=== PATIENT | female | born 1975 | race Caucasian/White ===

== ENCOUNTER 2023-11-01 16:57 | Emergency (ER) | payer OTHER, SELFPAY ==
[2023-11-01] VITALS (14 sets, daily range): BP systolic 124–205; BP diastolic 79–118; PULSE 100–127; TEMP 37.1; O2SAT 95–98; BMI 36.6
--- NOTE | 2023-11-01 17:10 | ECG_ITS ---
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
[2023-11-01] MEDS: 0.9 % SODIUM CHLORIDE 1,000 ML 1000 ML IV (17:32)
--- NOTE | 2023-11-01 17:35 | ED.SOB1 ---
HPI - SOB/Dyspnea General Chief Complaint: Shortness of Breath/Dyspnea Stated Complaint: CHEST PRESSURE Time Seen by Provider: 11/01/23 17:10 Source: patient Mode of arrival: walk-in Limitations: no limitations History of Present Illness HPI Narrative: Patient is a 48-year-old female who presents to the emergency department for shortness of breath and generalized weakness. Patient states she was outside in the heat painting cabinets earlier today when she felt winded and fatigued. She states several days ago she felt fatigued and nauseous. She has a history of asthma, she used her inhaler on feeling winded this afternoon with improvement. She has had no fevers, chest pain, vomiting. No other upper respiratory symptoms. She denies any peripheral edema. No history of tobacco abuse. 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 She admits to not drinking fluids well today. Related Data Home Medications ?Medication ?Instructions ?Recorded ?Confirmed budesonide 180 mcg/actuation 2 inh inhalation BEDTIME 11/01/23 11/01/23 breath activated powder inhaler (Pulmicort Flexhaler) fluconazole 50 mg tablet 50 mg PO DAILY 11/01/23 11/01/23 metformin 1,000 mg tablet 1,000 mg PO BID 11/01/23 11/01/23 montelukast 10 mg tablet 10 mg PO DAILY 11/01/23 11/01/23 Allergies Allergy/AdvReac Type Severity Reaction Status Date / Time No Known Drug Allergies Allergy Verified 11/01/23 17:04 Review of Systems ROS Constitutional Denies: fever or chills Ears, nose, mouth, and throat Denies: throat pain or nasal congestion Cardiovascular Denies: chest pain Respiratory Reports: shortness of breath; Denies: cough Gastrointestinal Denies: nausea or vomiting Integumentary/Breast Denies: rash Neurological Denies: headache, numbness in extremities, weakness in extremities or dizziness Hematologic/Lymphatic Denies: easy bruising or easy bleeding Exam Narrative Exam Narrative: Gen.: Awake, alert, in no distress Head: Normocephalic, atraumatic ENT: Moist mucous membranes Respiratory: No respiratory distress, lungs clear bilaterally Cardio: Tachycardia Extremities: Moves extremities equally, no pedal edema Psych: Normal mood and affect Neuro: No focal neuro deficit Skin: Warm, dry, intact Constitutional Vital Signs, click to edit/add: Last Vital Signs Temp 98.8 F 11/01/23 17:04 Pulse 100 H 11/01/23 21:04 Resp 20 11/01/23 17:55 BP 134/86 11/01/23 19:40 Pulse Ox 98 11/01/23 21:04 O2 Del Method Room Air 11/01/23 17:55 Course Vital Signs Vital signs: Vital Signs Temperature 98.8 F 11/01/23 17:04 Pulse Rate 117 H 11/01/23 17:04 Respiratory Rate 18 11/01/23 17:04 Blood Pressure 130/88 11/01/23 17:04 Pulse Oximetry 98 11/01/23 17:04 Oxygen Delivery Method Room Air 11/01/23 17:04 Temperature 98.8 F 11/01/23 17:04 Pulse Rate 100 H 11/01/23 21:04 Respiratory Rate 20 11/01/23 17:55 Blood Pressure 134/86 11/01/23 19:40 Pulse Oximetry 98 11/01/23 21:04 Oxygen Delivery Method Room Air 11/01/23 17:55 MDM - SOB/Dyspnea MDM Narrative Medical decision making narrative: Laboratory studies reviewed and noted within normal limits including D-dimer, troponin and BNP. Chest x-ray is unremarkable. Vital signs have improved, tachycardia has improved after IV fluids. Patient given general instructions for dehydration, increase fluids and use albuterol as needed. Patient is diabetic with elevated blood sugar so we will avoid steroids at this time. Follow-up with PCP and pulmonology and return to the ER if symptoms change or worsen SUPERVISED APC VISIT, PHYSICIAN ATTESTATION: Based on the medical record the care appears appropriate. ? Medical Records Attestation: I reviewed the patient's medical records. Lab Data Attestation: I reviewed the patient's lab results. Labs: Lab Results 11/01/23 11/01/23 Range/Units 17:25 17:30 WBC 11.8 H (4.0-11.0) 10^3/uL RBC 5.08 (4.20-5.40) 10^6/uL Hgb 15.3 (12.0-16.0) g/dL Hct 42.7 (36.0-48.0) % MCV 84.1 (81.0-99.0) fL MCH 30.1 (26.7-34.0) pg MCHC 35.8 H (29.9-35.2) g/dL RDW 12.2 (11.0-15.0) % Plt Count 333 (150-450) 10^3/uL MPV 10.3 (9.5-13.5) fL Neut % (Auto) 78.2 H (43.0-75.0) % Lymph % (Auto) 13.9 L (20.5-60.0) % [place] % (Auto) 5.9 (1.7-12.0) % Eos % (Auto) 1.4 (0.9-7.0) % Baso % (Auto) 0.3 (0.2-2.0) % Neut # (Auto) 9.3 H (1.4-6.5) 10^3/uL Lymph # (Auto) 1.6 (1.2-3.8) 10^3/uL [place] # (Auto) 0.7 (0.3-0.8) 10^3/uL Eos # (Auto) 0.2 (0.0-0.7) 10^3/uL Baso # (Auto) 0.0 (0.0-0.1) 10^3/uL Abs Immat Gran (auto) 0.03 (0.00-0.03) 10^3/uL Imm/Tot Granulo (auto) 0.3 (0.0-0.5) % PT 10.2 (9.0-11.6) sec INR 0.96 D-Dimer 0.32 (<=0.59) mg/L FEU Sodium 136 (136-145) mmol/L Potassium 3.9 (3.5-5.1) mmol/L Chloride 99 (98-107) mmol/L Carbon Dioxide 25.7 (21.0-32.0) mmol/L Anion Gap 15.2 BUN 12.0 (7.0-18.0) mg/dL Creatinine 0.66 (0.55-1.02) mg/dL Est GFR ( Amer) >60 (>=60) Est GFR (Non-Af Amer) >60 (>=60) BUN/Creatinine Ratio 18.2 Glucose 225 H (74-106) mg/dL Lactate 2.2 H* (0.4-2.0) mmol/L Calcium 9.0 (8.5-10.1) mg/dL Total Bilirubin 0.3 (0.2-1.0) mg/dL AST 8 L (15-37) U/L ALT 34 (14-59) U/L Alkaline Phosphatase 70 (46-116) U/L Troponin I High Sens 4.6 (4.0-51.3) pg/mL NT-Pro-B Natriuret Pep 10.0 (<=900.0) pg/mL Total Protein 7.2 (6.4-8.2) g/dL Albumin 3.8 (3.4-5.0) g/dL Globulin 3.4 g/dL Albumin/Globulin Ratio 1.1 TSH 0.592 (0.358-3.740) uIU/mL Urine Color Lt. yellow (YELLOW) Urine Clarity Clear (CLEAR) Urine pH 5.5 (5.0-9.0) Ur Specific [place] 1.025 (1.005-1.025) Urine Protein Negative (NEG/TRACE) mg/dL Urine Glucose (UA) >=1000 A (NEGATIVE) mg/dL Urine Ketones Trace A (NEGATIVE) mg/dL Urine Occult Blood Negative (NEGATIVE) Urine Nitrite Negative (NEGATIVE) Urine Bilirubin Negative (NEGATIVE) Urine Urobilinogen 0.2 (0.2-1.0) EU/dL Ur Leukocyte Esterase Negative (NEGATIVE) Acetone, Qual Negative (NEGATIVE) Imaging Data Chest x-ray: Attestation: I have reviewed the pertinent imaging results. Radiologist's impression: ITS Impressions Chest X-Ray 11/01/23 18:59 Impression: No acute cardiopulmonary process. Electronically authenticated by: REBECCA GREEN Date: 11/01/2023 20:49 ECG Data Attestation: I personally reviewed and interpreted this ECG as follows: (Sinus tachycardia at a rate of 119, no acute ST elevation or ectopy. EKG reviewed by attending physician) Discharge Plan Discharge Stand Alone Forms: Portal Instructions Chief Complaint: Shortness of Breath/Dyspnea Clinical Impression: Shortness of breath, Fatigue Patient Disposition: Home, Self-Care Time of Disposition Decision: 20:55 Condition: Good Prescriptions / Home Meds: No Action metformin 1,000 mg tablet 1,000 mg PO BID montelukast 10 mg tablet 10 mg PO DAILY fluconazole 50 mg tablet 50 mg PO DAILY Pulmicort Flexhaler 180 mcg/actuation aerosol powdr breath activated 2 inh INHALATION BEDTIME Print Language: Togolese Instructions: Fatigue (ED), Shortness of Breath (ED) Referrals: EYAD GALARZA [Primary Care Provider] - 1 week Discharge Date/Time: 11/01/23 21:19
[2023-11-01 17:41] LABS: Basophils Percent Auto 0.3 % (0.2-2.0); Eosinophils Absolute Auto 0.2 10^3/uL (0.0-0.7); Eosinophils Percent Auto 1.4 % (0.9-7.0); Hematocrit 42.7 % (36.0-48.0); Hemoglobin 15.3 g/dL (12.0-16.0); Immature Granulocytes Abs Auto 0.03 10^3/uL (0.00-0.03); Immature Granulocytes Pct Auto 0.3 % (0.0-0.5); Lymphocytes Absolute Auto 1.6 10^3/uL (1.2-3.8); Lymphocytes Percent Auto 13.9 % (20.5-60.0); Mean Corpuscular HGB Conc 35.8 g/dL (29.9-35.2); Mean Corpuscular Hemoglobin 30.1 pg (26.7-34.0); Mean Corpuscular Volume 84.1 fL (81.0-99.0); Mean Platelet Volume 10.3 fL (9.5-13.5); Monocytes Absolute Auto 0.7 10^3/uL (0.3-0.8); Monocytes Percent Auto 5.9 % (1.7-12.0); Neutrophils Absolute Auto 9.3 10^3/uL (1.4-6.5); Neutrophils Percent Auto 78.2 % (43.0-75.0); Platelet Count 333 10^3/uL (150-450); Red Blood Count 5.08 10^6/uL (4.20-5.40); Red Cell Distribution Width 12.2 % (11.0-15.0); White Blood Count 11.8 10^3/uL (4.0-11.0)
--- NOTE | 2023-11-01 17:51 | PC.NURSE ---
patient c/o exertional shortness of breath and chest pressure that has been intermittent for the past 2 weeks, worse today while painting cabinets and hand mopping the floor. patient c/o general malaise for the past 2 weeks and waking up feeling very hot, like on the inside.
[2023-11-01] MEDS: ALBUTEROL SULFATE 2.5 MG/3 ML VIAL NEB IH (17:55)
[2023-11-01 18:12] LABS: Thyroid Stimulating Hormone 0.592 uIU/mL (0.358-3.740)
[2023-11-01 18:14] LABS: Alanine Aminotransferase 34 U/L (14-59); Albumin Globulin Ratio 1.1; Albumin Level 3.8 g/dL (3.4-5.0); Alkaline Phosphatase 70 U/L (46-116); Anion Gap 15.2; Aspartate Amino Transferase 8 U/L (15-37); BUN Creatinine Ratio 18.2; Bilirubin Total 0.3 mg/dL (0.2-1.0); Carbon Dioxide 25.7 mmol/L (21.0-32.0); Chloride 99 mmol/L (98-107); Estimated GFR (African America >60 (>=60); Estimated GFR (Non-African Ame >60 (>=60); Globulin 3.4 g/dL; Glucose 225 mg/dL (74-106); Potassium 3.9 mmol/L (3.5-5.1); Sodium 136 mmol/L (136-145); Total Protein 7.2 g/dL (6.4-8.2); Troponin I High Sensitivity 4.6 pg/mL (4.0-51.3)
[2023-11-01 18:29] LABS: Bilirubin Urine NEGATIVE (NEGATIVE); Blood Urine NEGATIVE (NEGATIVE); Clarity Urine CLEAR (CLEAR); Color Urine LT. YELLOW (YELLOW); Glucose Urine UA >=1000 mg/dL (NEGATIVE); Ketones Urine TRACE mg/dL (NEGATIVE); Leukocyte Esterase Urine NEGATIVE (NEGATIVE); Nitrite Urine NEGATIVE (NEGATIVE); Protein Urine NEGATIVE (NEG/TRACE); Specific Gravity Urine 1.025 (1.005-1.025); Urobilinogen Urine 0.2 EU/dL (0.2-1.0); pH Urine 5.5 (5.0-9.0)
[2023-11-01 18:32] LABS: Urine Microscopic Indicated NO
[2023-11-01 18:34] LABS: Lactate/Lactic Acid 2.2 mmol/L (0.4-2.0)
[2023-11-01 18:40] LABS: D Dimer 0.32 mg/L FEU (<=0.59); INR 0.96; Prothrombin Time 10.2 sec (9.0-11.6)
[2023-11-01 18:55] LABS: Acetone NEGATIVE (NEGATIVE)
--- NOTE | 2023-11-01 18:59 | XR_ITS ---
The [address] [address] Patient Name: ERICK PRICE MRN: [id number] date: 1975 Sex: F Assigned Patient Location: ER Current Patient Location: ER Accession/Order Number: [id number] Exam Date: 11/01/2023 19:10 Report Date: 11/01/2023 20:49 At the request of: KEMI GUTIÉRREZ Procedure: XR chest 1V XR chest 1V 11/01/2023 6:10 PM CDT: History: Shortness of breath Comparison: None. Technique: 1 view chest Findings: The cardiomediastinal silhouette is normal. The lungs are clear without infiltrate, effusion, or pneumothorax. The bones are intact. XR/XR chest 1V Impression: No acute cardiopulmonary process. Electronically authenticated by: REBECCA GREEN Date: 11/01/2023 20:49
== END 2023-11-01 21:19 | disposition home or self-care (01) ==
PROVIDERS: Physician Assistant; Emergency Provider Emergency Medicine; PCP Family Medicine
DX: R06.02 Shortness of breath (principal); R53.83 Other fatigue; J45.909 Unspecified asthma, uncomplicated
CPT/HCPCS: 36415; 71045; 80053; 81003; 82009; 83605; 83880; 84443; 84484; 85025; 85378; 85610; 93005; 94640; 99285